=== PATIENT | male | born 1965 | race Caucasian/White ===

== ENCOUNTER 2017-09-05 16:56 | Inpatient (IN) | payer OTHER ==
[~2017-09-05] VITALS: Ht 165.1 cm; Wt 86.2 kg
--- NOTE | 2017-09-05 16:45 | NUR ---
RECEIVED FOR ADMISSION 51 YEARS OLD MALE BY AMBULANCE GURNEY FROM [facility] TO ROOM 221 WITH DX OF CELLULITIS OF THE SCROTUM.PALCED INTO BED FIXED AND MADE COMFORTABLE PATIENT IS ALERT AND ORIENTED DENIES PAIN OR DISCOMFORTS AT THIS TIME ON ROOM AIR WITH NO SOB SROTUM IS VERY RED AND SWOLLEN MADE COMFORTABLE DR FARRIS NOTIFIED THAT THE PATIENT IS HERE.
[2017-09-05 17:06] VITALS: BP 108/56
[2017-09-05] MEDS ORDERED: IV 1/2NS 1000 ML 1,000 ML IV PRN (17:30)
[2017-09-05] MEDS ORDERED: PIPERACILLIN SODIUM/TAZOBACTAM 4.5 G in IV DEXTROSE 5% 50 ML IV SCH (18:00)
--- NOTE | 2017-09-05 18:00 | NUR ---
CALLED AND LEFT A MESSAGE FOR DR FARRIS THAT PATIENT IS IN PAIN AND NEEDS TO BE MEDICATED FOR PAIN AWAITING FOR RETURN CALL.
[2017-09-05] MEDS ORDERED: METO25TA6 PO (18:10)
[2017-09-05] MEDS ORDERED: AMLO10TA4 PO (18:10)
[2017-09-05] MEDS ORDERED: CIPR-262 PO (18:10)
[2017-09-05] MEDS ORDERED: MAGNESIUM HYDROXIDE 30 ML LIQUID UDC PO PRN (18:15)
[2017-09-05] MEDS ORDERED: ACETAMINOPHEN 325 MG TABLET PO PRN (18:15)
[2017-09-05] MEDS ORDERED: Z GUARD REMEDY PASTE 57 GM TUBE TOP PRN (18:15)
[2017-09-05] MEDS ORDERED: ZOLPIDEM 5 MG TABLET PO PRN (18:15)
[2017-09-05] MEDS ORDERED: HYDROCODONE/APAP 5-325MG TABLET PO PRN (18:15)
[2017-09-05] MEDS: IV 1/2NS 1000 ML 1,000 ML IV PRN (18:21)
[2017-09-05] MEDS: HYDROMORPHONE 2 MG/1 ML DISP.SYRIN IV PRN (18:32)
[2017-09-05 19:33] VITALS: BP 119/68
[2017-09-05] MEDS ORDERED: IBUPROFEN 400 MG TABLET PO SCH (22:00)
[2017-09-05] MEDS: AMLODIPINE 10 MG TABLET PO SCH (22:17)
[2017-09-05] MEDS: METOPROLOL TARTRATE 25 MG TABLET PO SCH (22:17)
[2017-09-05] MEDS: PIPERACILLIN SODIUM/TAZOBACTAM 4.5 G in IV DEXTROSE 5% 50 ML IV SCH (22:17)
[2017-09-05] MEDS: PHENAZOPYRIDINE HCL 100 MG TABLET PO SCH (22:40)
[2017-09-06] MEDS: HYDROMORPHONE 2 MG/1 ML DISP.SYRIN IV PRN ×3 (00:10→21:00)
[2017-09-06 03:45] VITALS: BP 104/59
[2017-09-06] MEDS: PIPERACILLIN SODIUM/TAZOBACTAM 4.5 G in IV DEXTROSE 5% 50 ML IV SCH ×3 (05:20→21:54)
[2017-09-06] MEDS: PHENAZOPYRIDINE HCL 100 MG TABLET PO SCH ×3 (05:21→21:54)
--- NOTE | 2017-09-06 06:47 | NUR ---
PATIENT SLEPT MOST OF THE NIGHT, VOIDING WITH ORANGE COLOR URINE IN MODERATE AMOUNT DUE TO PYRIUM MEDS, CONT ON PAIN MANAGEMENT, KEPT SCROTUM ELEVATE, SEEN BY ZULLY HYATT, WITH ORDER TO ELEVATE SCROTUM WHEN AT REST, AND WEAR SUPPORT BRIEF WHEN WALKING. CALL LIGHT WITHIN REACH.
[2017-09-06 07:04] LABS: BASOPHILS % (AUTO) 0.2 % (0.0-2.0); EOSINOPHILS # (AUTO) 0.1 K/uL (0.0-0.7); EOSINOPHILS % (AUTO) 0.4 % (0.0-7.0); HEMATOCRIT 38.7 % (36.7-47.1); HEMOGLOBIN 13.1 g/dL (12.5-16.3); LYMPHOCYTES # (AUTO) 1.9 K/uL (20.0-40.0); LYMPHOCYTES % (AUTO) 11.6 % (20.5-51.5); MEAN CORPUSCULAR HEMOGLOBIN 30.6 uug (23.8-33.4); MEAN CORPUSCULAR HGB CONC 34 g/dL (32.5-36.3); MEAN CORPUSCULAR VOLUME 90.3 fL (73.0-96.2); MONOCYTES # (AUTO) 1.1 K/uL (2.0-10.0); MONOCYTES % (AUTO) 6.7 % (0.0-11.0); NEUTROPHILS # (AUTO) 13.4 K/uL (1.8-8.9); NEUTROPHILS % (AUTO) 81.1 % (38.5-71.5); PLATELET COUNT (AUTO) 191 K/uL (152-348); RED BLOOD CELL COUNT(AUTO) 4.29 MIL/uL (4.06-5.63); WHITE BLOOD COUNT (AUTO) 16.6 K/uL (3.6-10.2)
[2017-09-06 07:13] LABS: BILIRUBIN,TOTAL 0.6 mg/dL (0.2-1.0); CREATININE 1.1 mg/dL (0.6-1.3); PHOSPHOROUS 2.7 mg/dL (2.5-4.9); POTASSIUM 4.2 mmol/L (3.5-5.1); TOTAL PROTEIN, SERUM 6.4 g/dL (6.4-8.2)
[2017-09-06] MEDS: METOPROLOL TARTRATE 25 MG TABLET PO SCH (08:55)
[2017-09-06] MEDS: AMLODIPINE 10 MG TABLET PO SCH (08:55)
[2017-09-06] MEDS: IV 1/2NS 1000 ML 1,000 ML IV PRN (08:55)
[2017-09-06 11:37] VITALS: BP 111/72
--- NOTE | 2017-09-06 12:40 | NUR ---
Patient c/o of scrotal pain radiating to the left side of upper thigh, hip and lateral chest. Pain management as ordered. Will reassess and monitor.
[2017-09-06] MEDS: ONDANSETRON 4 MG/2 ML VIAL IV PRN ×2 (13:51→20:59)
--- NOTE | 2017-09-06 13:55 | NUR ---
Patient c/o of nausea, prn med administered as ordered. Will reassess and monitor.
--- NOTE | 2017-09-06 14:26 | NUR ---
Patient eduction provided regarding cellulitis and WBC test, patient/family verbalized understanding.
[2017-09-06 15:17] VITALS: BP 109/64
--- NOTE | 2017-09-06 17:19 | NUR ---
Patient resting comfortable in bed, spouse/family at bedside. Patient no c/o of pain, verbalized effectiveness of prn pain/nausea medication.
[2017-09-06 18:12] LABS: *BILIRUBIN,URIN NEGATIVE (NEGATIVE); *BLOOD, URINE Trace-lysed (NEGATIVE); *CLARITY,URINE SLIGHTLY CLOUDY (CLEAR); *COLOR,URINE Orange (YELLOW); *KETONES,URINE TRACE (NEGATIVE); *PROTEIN,URINE 2+ (NEGATIVE); LEUKOCYTE ESTERASE ,URINE NEGATIVE (NEGATIVE); NITRITE, URINE POSITIVE (NEGATIVE); UGLUCOSE TRACE (NEGATIVE)
--- NOTE | 2017-09-06 18:19 | NUR ---
Scrotal area remains red, swelling, c/o of pain upon palpation. Scrotal area elevated at all times, educated patient/family to support scrotal area when ambulating to the toilet or standing, patient/family verbalized understanding.
[2017-09-06 18:50] LABS: WBC,URINE 0-3 /HPF (0-3)
[2017-09-06 18:51] LABS: SQUAMOUS EPITHELIAL CELL,UR NONE SEEN /HPF (NONE SEEN)
[2017-09-06 18:54] LABS: BACTERIA,URINE RARE /HPF (NONE SEEN)
--- NOTE | 2017-09-06 19:45 | NUR ---
RECEIVED PATIENT AWAKE IN BE WITH FAMILY AT BEDSIDE. A/O X3. [place] SPEAKING BUT ABLE TO MAKE NEEDS KNOWN. SCROTUM ELEVATED ORDERED FOR SWELLING. VSS. IVF INFUSING WELL. DENIES NEEDS FOR PAIN MEDICATION AT THIS TIME. WILL CONTINUE TO MONITOR,
[2017-09-06 20:00] VITALS: BP 126/82
[2017-09-07] MEDS: IV 1/2NS 1000 ML 1,000 ML IV PRN ×2 (02:22→14:20)
[2017-09-07 05:25] VITALS: BP 123/69
[2017-09-07] MEDS: PIPERACILLIN SODIUM/TAZOBACTAM 4.5 G in IV DEXTROSE 5% 50 ML IV SCH ×3 (05:51→22:11)
[2017-09-07] MEDS: PHENAZOPYRIDINE HCL 100 MG TABLET PO SCH ×3 (05:56→22:00)
[2017-09-07] MEDS: HYDROMORPHONE 2 MG/1 ML DISP.SYRIN IV PRN ×4 (06:00→22:12)
--- NOTE | 2017-09-07 06:59 | NUR ---
PATIENT ASLEEP IN BED. NO S/S OF PAIN OR DISCOMFORT, PATIENT WAS PREVIOUSLY MEDICATED WITH DILAUDID 1MG IV PRN PER ZOO CARETAKER. IVF INFUSING WELL. SLEPT AT SMALL INTERVALS. CALL LIGHT IN REACH. ALL NEEDS ATTENDED. SCROTUM REMAINED ELEVATED THROUGHOUT THE NIGHT ORDERED PER MD. WILL CONTINUE TO MONITOR.
[2017-09-07] MEDS: METOPROLOL TARTRATE 25 MG TABLET PO SCH (08:28)
[2017-09-07] MEDS: AMLODIPINE 10 MG TABLET PO SCH (08:28)
[2017-09-07 10:16] LABS: BASOPHILS # (AUTO) 0.1 K/uL (0.0-8.0); BASOPHILS % (AUTO) 0.5 % (0.0-2.0); EOSINOPHILS # (AUTO) 0.2 K/uL (0.0-0.7); EOSINOPHILS % (AUTO) 2.2 % (0.0-7.0); HEMATOCRIT 38.4 % (36.7-47.1); HEMOGLOBIN 13.3 g/dL (12.5-16.3); LYMPHOCYTES # (AUTO) 1.6 K/uL (20.0-40.0); LYMPHOCYTES % (AUTO) 15.6 % (20.5-51.5); MEAN CORPUSCULAR HGB CONC 35 g/dL (32.5-36.3); MEAN CORPUSCULAR VOLUME 89.4 fL (73.0-96.2); MONOCYTES # (AUTO) 0.7 K/uL (2.0-10.0); MONOCYTES % (AUTO) 6.6 % (0.0-11.0); NEUTROPHILS # (AUTO) 7.9 K/uL (1.8-8.9); NEUTROPHILS % (AUTO) 75.1 % (38.5-71.5); PLATELET COUNT (AUTO) 204 K/uL (152-348); WHITE BLOOD COUNT (AUTO) 10.5 K/uL (3.6-10.2)
[2017-09-07 11:24] VITALS: BP 114/72
[2017-09-07 15:27] VITALS: BP 122/70
--- NOTE | 2017-09-07 17:25 | NUR ---
Patient complained of scrotol pain which was relieved with diluadid, pt then had PANTOJA which was relieved with tylenol. Kept scrotum elevated, all due medications given as ordered, VSS, call light in reach
[2017-09-07 20:00] VITALS: BP 118/69
--- NOTE | 2017-09-07 20:00 | NUR ---
RECEIVED PATIENT AWAKE IN BED WITH VISITOR AT BEDSIDE. A/O X4. TURKISH SPEAKING BUT ABLE TO MAKE NEEDS KNOWN. SCROTUM ELEVATED ORDERED FOR SWELLING. VSS. IVF INFUSING WELL TO LEFT HAND #22 GAUGE. DENIES NEEDS FOR PAIN MEDICATION AT THIS TIME. WILL CONTINUE TO MONITOR. ALL NEEDS ATTENDED.
[2017-09-08] MEDS: HYDROMORPHONE 2 MG/1 ML DISP.SYRIN IV PRN (02:02)
[2017-09-08 05:03] VITALS: BP 116/70
[2017-09-08] MEDS: IV 1/2NS 1000 ML 1,000 ML IV PRN (05:13)
[2017-09-08] MEDS: PHENAZOPYRIDINE HCL 100 MG TABLET PO SCH (05:22)
--- NOTE | 2017-09-08 05:25 | NUR ---
PATIENT AWAKE IN BED. C/O PAIN/DISCOMFORT IN LOWER BACK. PATIENT GIVEN MOTRIN 400MG PO PRN FOR PAIN. VSS. SLEPT AT INTERVALS THROUGHOUT THE NIGHT. SCROTUM ELEVATED ORDERED. CALL LIGHT IN REACH. ALL NEEDS ATTENDED. WILL CONTINUE TO MONITOR AND ASSESS.
[2017-09-08] MEDS: PIPERACILLIN SODIUM/TAZOBACTAM 4.5 G in IV DEXTROSE 5% 50 ML IV SCH (05:29)
--- NOTE | 2017-09-08 06:45 | NUR ---
PATIENT AWAKE. MOTRIN EFFECTIVE. NO C/O DISCOMFORT AT THIS TIME. CALL LIGHT IN REACH. ALL NEEDS ATTENDED. WILL CONTINUE TO MONITOR AND ASSESS.
[2017-09-08] MEDS: METOPROLOL TARTRATE 25 MG TABLET PO SCH (08:38)
[2017-09-08] MEDS: AMLODIPINE 10 MG TABLET PO SCH (08:38)
[2017-09-08 11:32] VITALS: BP 119/78
--- NOTE | 2017-09-08 12:07 | NUR ---
PATIENT GOT DISCHARGE HOME IN STABLE CONDITION. NO S/S OF DISTRESS NOTED. V/S WNL. DC INSTRUCTIONS WERE EXPLAINED, A COPY WAS PROVIDED WELL PRESCRIPTIONS AND IMAGING CD. IV WAS REMOVED. SAFETY AND COMFORT PROVIDED DURING THE SHIFT BY STAFF. PATIENT AMBULATE TO HIS CAR ACCOMPANIED BY NURSE AND SISTER.
== END 2017-09-08 11:50 | disposition home or self-care (01) | DRG 720 ==
LOC: MED 16:56
PROVIDERS: ADMIT Internal Medicine; ATTEND Internal Medicine
DX: A41.9 Sepsis, unspecified organism (principal); I10 Essential (primary) hypertension; N45.1 Epididymitis; N45.2 Orchitis; N40.1 Benign prostatic hyperplasia with lower urinary tract symptoms; R39.15 Urgency of urination; Z98.890 Other specified postprocedural states; Z90.79 Acquired absence of other genital organ(s); N43.3 Hydrocele, unspecified; N50.3 Cyst of epididymis
CPT/HCPCS: 36415; 83735; 84100; 85025; J1170; J2405; J2543; J3490; J7060